=== PATIENT | female | born 1985 | race Caucasian/White ===

== ENCOUNTER 2017-07-31 17:58 | Emergency (ER) | payer BC ==
[~2017-07-31] VITALS: Ht 177.8 cm; Wt 68.0 kg
[2017-07-31] MEDS: IV NORMAL SALINE 1,000ML 1,000 ML IV SCH ×2 (18:15→19:39)
[2017-07-31 18:51] LABS: BASO % 0 % (0-3); EOS # 0.4 x10^3/uL (0.0-0.7); EOS % 5 % (0-3); HEMOGLOBIN 13.1 g/dL (12.0-15.5); LYMPH # 2.6 x10^3/uL (1.0-4.8); LYMPH % 29 % (24-48); MEAN CORPUSCULAR HEMOGLOBIN 32 pg (25-35); MEAN CORPUSCULAR HGB CONC 34 g/dL (31-37); MEAN CORPUSCULAR VOLUME 92 fL (79-100); MONO # 0.7 x10^3/uL (0.0-1.1); MONO % 8 % (0-9); NEUT # 5.1 x10^3uL (1.8-7.7); NEUT % 58 % (31-73); PLATELET COUNT 246 x10^3/uL (140-400); RED BLOOD COUNT 4.11 x10^6/uL (3.50-5.40); RED CELL DISTRIBUTION WIDTH 12.2 % (11.5-14.5); WHITE BLOOD COUNT 8.8 x10^3/uL (4.0-11.0)
[2017-07-31 19:01] LABS: ALBUMIN 3.6 g/dL (3.4-5.0); CREATININE 0.7 mg/dL (0.6-1.0); DIRECT BILIRUBIN 0.1 mg/dL (0.0-0.2); GFR 98.9; POTASSIUM 3.8 mmol/L (3.5-5.1); TOTAL BILIRUBIN 0.2 mg/dL (0.2-1.0); TOTAL PROTEIN 6.7 g/dL (6.4-8.2)
--- NOTE | 2017-07-31 19:59 | PHYS DOC ---
General Chief Complaint: VAGINAL BLEEDING Stated Complaint: 6 WK PREG/BLEEDING Time Seen by MD: 18:01 Source: patient Exam Limitations: no limitations Problems: History of Present Illness Initial Comments Patient is a 31-year-old 6 week gestation female complaining of vaginal bleeding. Patient follows a infertility clinic, she states that she had spotting last and her doctor ordered an hCG which was 5279. He was rechecked on Wednesday and improved 7030. She's had intermittent pelvic cramping and low back discomfort, today while shopping she felt an abnormal sensation and when she went to the bathroom and large clot was passed. She's had mildly increased bleeding since that time and comes for evaluation. She states that her blood type is O-, on arrival she is in no apparent distress her vital signs are stable. She denies any headache chest pain shortness of breath palpitations dyspnea on exertion or overwhelming fatigue. She denies any clotting disorder or blood thinners. Timing/Duration: other Severity: moderate Modifying Factors: improves with other Associated Symptoms: other Allergies: Coded Allergies: No Known Drug Allergies (Unverified , 07/31/17) Past Medical History Medical History: no pertinent history Surgical History: tonsillectomy LMP (Females 10-50): Social History Smoker: non-smoker Alcohol: none Drugs: none Review of Systems Constitutional: denies chills, denies diaphoresis, denies fever, denies malaise Respiratory: denies cough, denies shortness of breath Cardiovascular: denies chest pain, denies palpitations, denies syncope Gastrointestinal: see HPI, denies diarrhea, denies nausea, denies vomiting Genitourinary: see HPI, denies dysuria, denies frequency Musculoskeletal: see HPI, denies joint swelling, denies neck pain Psychiatric/Neurological: denies headache, denies numbness, denies paresthesia Physical Exam General Appearance: WD/WN, no apparent distress Ear, Nose, Throat: hearing grossly normal, normal ENT inspection Neck: non-tender, supple Respiratory: normal breath sounds, no respiratory distress Cardiovascular: normal peripheral pulses, regular rate, rhythm Gastrointestinal: normal bowel sounds, non tender, soft Rectal: deferred Back: no CVA tenderness, no vertebral tenderness Extremities: non-tender, normal inspection, no pedal edema, no calf tenderness , pelvis stable 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 I discussed the likelihood of miscarriage with the patient. No lateralizing symptoms or excessively high hCG so ectopic not likely. Patient's hemoglobin is stable and no excessive bleeding has been noted in the emergency department. I feel ultrasound is not indicated at this time, I discussed signs and symptoms to monitor as well as indications for urgent return to the department. I discussed pelvic rest and time off work as well as close follow- up with INPATIENT CARE MANAGER RN after the holiday. Patient's questions were answered to her satisfaction and she expressed agreement and understanding of the treatment plan. She developed no new or progressive symptoms throughout the ED course her vital signs remained stable. She did ultimately were received Rhogam Departure Time of Disposition: 19:57 Disposition: HOME, SELF-CARE Diagnosis: threatened miscarriage Condition: STABLE Patient Instructions: Threatened Miscarriage Additional Instructions: Please review the patient education materials given by ED staff. Bed rest, pelvic rest recommended. [id number] Tylenol as needed for discomfort. Heating pad to the low back or abdomen 15-20 minutes at a time may help alleviate cramping symptoms. 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 Return to the ED with new or changing symptoms ROBERT PERSAUD DO Jul 31, 2017 19:59
[2017-07-31 20:00] VITALS: BP 109/73
== END 2017-07-31 20:35 | disposition home or self-care (01) ==
LOC: ER 17:58
DX: O20.0 Threatened abortion (principal); Z3A.01 Less than 8 weeks gestation of pregnancy
CPT/HCPCS: 36415; 36430; 80048; 80076; 84702; 85025; 86850; 86900; 86901; 99285; J2791; 99284